=== PATIENT | female | born 1950 | race Caucasian/White ===

== ENCOUNTER 2016-07-02 12:08 | Inpatient (IN) | payer OTHER ==
[~2016-07-02] VITALS: Ht 157.5 cm; Wt 72.5 kg
[2016-07-02 12:09] VITALS: BP 191/86; PULSE 71; RESP 18; TEMP 98.2; O2SAT 99
[2016-07-02] MEDS ORDERED: LOSA25TA PO (12:25)
[2016-07-02] MEDS ORDERED: LEXA20TA PO (12:25)
[2016-07-02] MEDS ORDERED: LOVA40TA PO (12:25)
--- NOTE | 2016-07-02 12:37 | PD ---
HPI Chief Complaint: Psychiatric Symptoms Time Seen by Provider: 12:13 Travel History International Travel<30 days: Yes Contact w/Intl Traveler<30days: Yes Name of Country Traveled to: [place], [place], [place] Traveled to known affect area: Yes History of Present Illness HPI The patient is a 66-year-old female who presents emergency department from her physician's office for psychiatric evaluation. Patient has a long- standing history of depression and has been treated with Elavil in the past. The patient is currently on Lexapro without any alleviation of her symptoms. The patient states she "prays to God "every day that "God will take her ". The patient states she has had thoughts of suicide, has contemplated taking pills at home, but denies taking any actual pills prior to arrival. The patient was seen by her primary physician earlier today, Dr. Monzon, who referred her to the emergency department for evaluation by psychiatry. 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 She denies any hallucinations, delusions, alcohol abuse, or illicit drug use. Symptoms have been ongoing for years, but progressing last several weeks. The patient states she recently had outpatient lab work done evaluated for thyroid disorder, was referred to an trumpet player, however, is not currently on any medications for her thyroid. PFSH Past Medical History Depression: Yes Cerebral Palsy: Yes Hypertension: Yes Tetanus Vaccination: > 5 Years ?: Not Past Surgical History Appendectomy: Yes Gynecologic Surgery: Yes (cyst) Social History Alcohol Use: No Tobacco Use: No Substance Use: No Allergies-Medications (Allergen,Severity, Reaction): Coded Allergies: Sulfa (Verified Allergy, Severe, RASH, 07/02/16) Reported Meds & Prescriptions Reported Meds & Active Scripts Active Reported Lexapro (Escitalopram Oxalate) 20 Mg Tab 20 Mg PO HS Lovastatin 40 Mg Tab 40 Mg PO HS Losartan (Losartan Potassium) 25 Mg Tab 25 Mg PO DAILY Review of Systems Except as stated in HPI: all other systems reviewed are Neg General / Constitutional: Positive: Weight Gain HENT: No: Lightheadedness Cardiovascular: No: Chest Pain or Discomfort Respiratory: No: Shortness of Breath Gastrointestinal: No: Nausea, Vomiting, Abdominal Pain Musculoskeletal: No: Myalgias, Arthralgias Psychiatric: Positive: Depression, Suicidal Ideations, No: Substance Abuse, Homicidal Ideation Physical Exam Narrative GENERAL: Awake, alert, pleasant 66-year-old female who appears her stated age and is in no acute respiratory distress. The patient is somewhat tearful. SKIN: Focused skin assessment warm/dry. HEAD: Atraumatic. Normocephalic. EYES: Pupils equal and round. No scleral icterus. No injection or drainage. ENT: No nasal bleeding or discharge. Mucous membranes pink and moist. NECK: Trachea midline. No JVD. CARDIOVASCULAR: Regular rate and rhythm. No murmur appreciated. RESPIRATORY: No accessory muscle use. Clear to auscultation. Breath sounds equal bilaterally. GASTROINTESTINAL: Abdomen soft, non-tender, nondistended. No rebound tenderness. MUSCULOSKELETAL: No obvious deformities. No clubbing. No cyanosis. No edema. NEUROLOGICAL: Awake and alert. No obvious cranial nerve deficits. Motor grossly within normal limits. Normal speech. PSYCHIATRIC: Appropriate mood and affect; insight and judgment normal. Tearful , appropriate. Data Data Last Documented VS Vital Signs Date Time Temp Pulse Resp B/P Pulse Ox O2 Delivery O2 Flow Rate FiO2 07/02/16 12:09 98.2 71 18 191/86 99 Orders Psych Screen (07/02/16 12:22) [facility] Medical Decision Making Medical Screen Exam Complete: Yes Emergency Medical Condition: Yes Medical Record Reviewed: Yes Interpretation(s) Labs from 06/18/2016 Free T3 2 0.34, normal range Free T4 0.79, normal range 0.93-1.7 TSH 3.28, normal limits Sodium 141, potassium 4.0, chloride 104, CO2 is 26, glucose is 88, BUN 16, creatinine 0.72, calcium 9.1, total protein 6.6, albumin 4.5, total bili 0.4, alkaline phosphatase 70, AST 33, AST 24, anion gap 11 Cholesterol 197, triglycerides 33, HDL 1 awake, LDL 82 Differential Diagnosis Differential diagnosis includes depressive disorder NOS, major depression, hypothyroidism, mood disorder NOS, substance induced mood disorder, bipolar affective disorder. Narrative Course I reviewed the patient's labs that she recently had done as an outpatient, no indication for further laboratory evaluation in the emergency department. Patient is medically cleared to be evaluate by psychiatry. Disposition as per psych. Diagnosis Primary Impression: Major depressive disorder Qualified Code: F33.2 - Severe episode of recurrent major depressive disorder , without psychotic features Additional Impression: Suicidal ideation Condition: Stable Dwayne Braxton MD July 02, 2016 12:37
[2016-07-02] MEDS ORDERED: ALEN1TAB48 PO (14:07)
--- NOTE | 2016-07-02 14:35 | PD ---
History of Present Illness Chief Complaint: Psychiatric Symptoms Time Seen by Provider: 13:15 Travel History International Travel<30 Days: Yes Contact w/Intl Traveler<30days: Yes Name of Country Traveled to: [facility], [place], [place] Known affected area: Yes Legal Status Legal Status: Voluntary History of Present Illness: History of Present Illness HPI The patient is a 66-year-old female with a history of depression who presents emergency department sent from her physician's office for psychiatric evaluation. The patient reports that she has a long history of depression and that for the past few weeks she has been feeling more depressed, hopeless, as well as having increasing passive suicidal ideation as well as increase in suicidal ideation. She has not made any attempts at harming herself but has contemplated taking her medications. She also reports impaired sleep, low level of energy with low motivation. She states she has been taking her prescribed medication Lexapro. She had been taking Elavil and Buspar in the past but weaned herself off both of these medications in February. She cannot identify any recent stressors. She has been in recovery and sober for the past 14 years but is reporting that she has been having increasing desire to drink. Patient is seen in main Ed . Casually and neatly dressed female who is well groomed and dressed appropriately. present during the interview. She is alert, oriented, tearful. Speech is clear and logical , goal directed . There is no psychosis and no steven. Mood is depressed. Continues to endorse passive suicidal ideation. At this time the patient does not meet criteria for BA and is in agreement that she is in need of inpatient psychiatric treatment in order to adjust psychiatric medication in a controlled and supervised environment. She is in agreement with this plan. EMR is reviewed. [place] [facility] Labwork will be ordered. [facility] Past Medical History Depression: Yes Cerebral Palsy: Yes Hypertension: Yes Tetanus Vaccination: > 5 Years ?: Not Past Surgical History Appendectomy: Yes Gynecologic Surgery: Yes (cyst) Psychiatric History Psychiatric History Hx Psychiatric Treatment: Has been in psychiatric treatmetn since . Deneis any inpatient psychiatric tretament. Her PCP is currently prescribing antidepressants History of Inpatient Treatment: No Guns or firearms in home: Yes ( has hidden) Social History since 2013 but has been in current relationship for the past 15 years. 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 Hx Alcohol Use: No Hx Tobacco Use: No Hx Substance Use: No Substance Use Type: Alcohol Hx of Substance Use Treatment: Yes (Reports has been sober x 14 years. Hx of multiple substance use as a teenager) Family Psychiatric History Father committed suicide. Allergies-Medications (Allergen,Severity, Reaction): Coded Allergies: Sulfa (Verified Allergy, Severe, RASH, 07/02/16) Reported Meds & Prescriptions Reported Meds & Active Scripts Active Reported Alendronate (Alendronate Sodium) 70 Mg Tab 70 Mg PO Q7D Lexapro (Escitalopram Oxalate) 20 Mg Tab 20 Mg PO HS Lovastatin 40 Mg Tab 40 Mg PO HS Losartan (Losartan Potassium) 25 Mg Tab 25 Mg PO DAILY Review of Systems Except as stated in HPI: all other systems reviewed are Neg Exam Alert: Yes [place]: Person (ox4) Mood: Depressed Affect: Tearful Speech: Clear, Logical Eye Contact: Normal Memory Intact: Comment (not impaired) Hallucinations: Other (denies any) Delusions: No Suicidal: Plan (to overdose), Ideation Homicidal: Ideation (neagtive) Insight/Judgement Fair. Not impaired. MDM Medical Decision Making Medical Record Reviewed: Yes (No previous contact with [facility] Assessment/Plan 66 year old female on a voluntary status who is referred [place] [facility] by her PCP as she has been increasingly depressed with passive suicidal ideation. Most recent she has been contemplating overdosing on her medication which has prompted this visit to ED. At this time the patient meets criteria for increase in level of care such as inpatient psychiatric unit. She agrees voluntary hospitalization. Orders Psych Screen (07/02/16 12:22) Results Vital Signs Date Time Temp Pulse Resp B/P Pulse Ox O2 Delivery O2 Flow Rate FiO2 07/02/16 12:09 98.2 71 18 191/86 99 Diagnosis Primary Impression: Major depressive disorder Additional Impression: Suicidal ideation Admitting Information Admitting Physician Requests: Admit (Dr. Quintana) Condition: Stable Problem Qualifiers Primary Impression: Major depressive disorder Qualified Code: F33.2 - Severe episode of recurrent major depressive disorder , without psychotic features Mary Ann Paris [facility] July 02, 2016 14:35
[2016-07-02] MEDS ORDERED: MAGNESIUM HYDROXIDE SUSP 30 ML CUP PO PRN (14:45)
[2016-07-02] MEDS ORDERED: ACETAMINOPHEN 325 MG TAB PO PRN (14:45)
[2016-07-02] MEDS ORDERED: ALUMINUM/MAGNESIUM/SIMETH 30 ML CUP PO PRN (14:45)
[2016-07-02 16:23] LABS: AUTOMATED NEUTROPHIL # 1.4 TH/MM3 (1.8-7.7); BASOPHIL % 0.6 % (0.0-2.0); EOSINOPHIL # 0.1 TH/MM3 (0-0.4); EOSINOPHIL % 2.1 % (0.0-4.0); HEMATOCRIT 36.3 % (35.0-46.0); HEMO FLAGS DIFF FINAL; LYMPH % 38.7 % (9.0-44.0); LYMPHOCYTE # 1.1 TH/MM3 (1.0-4.8); MEAN CORPUSCULAR HEMOGLOBIN 31.3 PG (27.0-34.0); MEAN CORPUSCULAR HGB CONC 32.9 % (32.0-36.0); MONO % 9.1 % (0.0-8.0); NEUT % 49.5 % (16.0-70.0); PLATELET COUNT 181 TH/MM3 (150-450); RED BLOOD COUNT 3.82 MIL/MM3 (4.00-5.30); RED CELL DISTRIBUTION WIDTH 13.7 % (11.6-17.2); WHITE BLOOD COUNT 2.9 TH/MM3 (4.0-11.0)
[2016-07-02 16:26] VITALS: BP 138/78; PULSE 78; RESP 18; TEMP 98.7; O2SAT 96
[2016-07-02 16:36] LABS: AMPHETAMINE, URINE NEG (NEG); BARBITURATES, URINE NEG (NEG); COCAINE, URINE NEG (NEG)
[2016-07-02 16:50] LABS: ANION GAP 6 MEQ/L (5-15); AST (GOT) 24 U/L (15-37); BICARBONATE 31.8 MEQ/L (21.0-32.0); BLOOD UREA NITROGEN 9 MG/DL (7-18); CHLORIDE 105 MEQ/L (98-107); GLOMERULAR FILTRATION RATE 77 ML/MIN (>89); POTASSIUM 3.9 MEQ/L (3.5-5.1); SODIUM (NA) 143 MEQ/L (136-145)
[2016-07-02 16:53] LABS: ALKALINE PHOSPHATASE 87 U/L (45-117); ALT (GPT) 33 U/L (10-53); TOTAL BILIRUBIN ADULT 0.6 MG/DL (0.2-1.0)
[2016-07-02 18:16] VITALS: BP 160/78; PULSE 70; RESP 18; TEMP 97.7; O2SAT 98
[2016-07-03 05:33] VITALS: BP 108/75; PULSE 78; RESP 16; TEMP 97.6; O2SAT 97
[2016-07-03 08:38] LABS: HDL CHOLESTEROL 102.6 MG/DL (40.0-60.0); LDL CHOLESTEROL 93 MG/DL (0-99)
[2016-07-03] MEDS ORDERED: INFLUENZA VIRUS VACCINE (QUADRIVALENT) 0.5 ML SYR IM ONE (10:00)
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
[2016-07-03 16:02] LABS: HEMOGLOBIN A1a 1.2 %; HEMOGLOBIN A1b 0.8 %; HEMOGLOBIN F 1.2 %; HEMOGLOBIN LA1C 1.9 %; HEMOGLOBIN P3 3.7 %
== END 2016-07-03 12:10 | disposition home or self-care (01) | DRG 885 ==
LOC: NEPJ 12:08 → NEDA 14:44 → H260 17:02
PROVIDERS: ADMIT Psychiatry & Neurology Psychiatry; ATTEND Psychiatry & Neurology Psychiatry
DX: F33.2 Major depressive disorder, recurrent severe without psychotic features (principal); R45.851 Suicidal ideations; I10 Essential (primary) hypertension; G80.9 Cerebral palsy, unspecified
CPT/HCPCS: 80053; 80061; 80307; 83036; 85025; 99284